=== PATIENT | female | born 1995 ===

== ENCOUNTER → 2019-05-05 | Outpatient (CLI) | payer BC ==
--- NOTE | 2019-05-05 11:46 | RADIOLOGY IMAGING REPORT ---
FACILITY: [facility] [place] PATIENT NAME: Daphney Culp : 1995 MR: [id number] V: [id number] EXAM DATE: ORDERING PHYSICIAN: EFRAIN JARAMILLO TECHNOLOGIST: Location: [facility] [place] Patient: Daphney Culp : 1995 Visit/Account:[id number] Date of Sevice: 05/05/2019 Pelvic ultrasound HISTORY: Lost intrauterine device string. COMPARISON: None available. Findings: Standard endovaginal pelvic ultrasound with color flow and spectral analysis. Uterus: Uterus measurement: 8.1 x 5.5 x 3.7 cm Endometrium measurement: 9 mm Intrauterine device in the upper uterus. Adnexa: Right ovary: 4.1 x 3.9 x 1.6 cm Left ovary: 2.8 x 2.5 x 2.1 cm Normal blood flow. No suspicious mass. Small simple cyst in the right ovary. Free fluid: None. Urinary bladder: Empty. IMPRESSION: 1. Intrauterine device in the upper uterus. 2. Small simple cyst in the right ovary. 3. Otherwise unremarkable pelvic ultrasound. Report Dictated By: Royce Vines MD at 05/05/2019 11:35 AM Report E-Signed By: Royce Vines MD at 05/05/2019 11:37 AM WSN:[id number]
== END ==
LOC: US 08:43
PROVIDERS: ATTEND Nurse Practitioner
DX: Z30.431 Encounter for routine checking of intrauterine contraceptive device (principal); N83.201 Unspecified ovarian cyst, right side
CPT/HCPCS: 76856